=== PATIENT | female | born 1980 | race Hispanic/Latino ===

== ENCOUNTER 2018-01-01 13:54 | Emergency (ER) | payer BC ==
[2018-01-01] MEDS ORDERED: Sodium Chloride 0.9% 1,000 ML IV ONE (14:24)
[2018-01-01] MEDS ORDERED: Lidocaine 1%/Epinephrine 1:100000 30 ml vial IJ ONE (14:39)
[2018-01-01 14:56] LABS: BASO # 0.1 K/uL (0.0-0.2); BASO % 0.7 % (0.0-2.0); EOS # 0.1 K/uL (0.0-0.7); LYMPH # 1.3 K/uL (1.0-4.3); MEAN CELL VOLUME 91.2 fL (81.0-99.0); MEAN CORPUSCULAR HEMOGLOBIN 31.7 pg (27.0-31.0); MEAN CORPUSCULAR HGB CONC 34.8 g/dL (33.0-37.0); MEAN PLATELET VOLUME 9.8 fL (7.2-11.7); MONO # 0.6 K/uL (0.0-0.8); MONO % 6.1 % (0.0-10.0); NEUT # 8.5 K/uL (1.8-7.0); NEUT % 80.2 % (50.0-75.0); RBC 4.72 Mil/uL (3.80-5.20); RED CELL DISTRIBUTION WIDTH 13.7 % (11.5-14.5); WHITE BLOOD COUNT 10.6 K/uL (4.8-10.8)
[2018-01-01] MEDS ORDERED: Sodium Chloride 0.9% 1,000 ML ONE (15:03)
[2018-01-01] MEDS ORDERED: Lidocaine 2% w Epi 1:100,000 Inj IJ ONE ×2 (15:10→16:36)
[2018-01-01 15:17] LABS: HCG,QUALITATIVE URINE NEGATIVE (NEGATIVE)
[2018-01-01 15:22] LABS: SQUAMOUS EPITHIAL 5 /hpf (0-5); URINE BILIRUBIN NEGATIVE (NEGATIVE); URINE BLOOD NEGATIVE (NEGATIVE); URINE CLARITY Hazy (Clear); URINE COLOR Yellow (YELLOW); URINE GLUCOSE (UA) NORMAL (Normal); URINE HYALINE CAST 0-2 /lpf (0-2); URINE LEUKOCYTE ESTERASE NEG Leu/uL (Negative); URINE PROTEIN 1+ mg/dL (NEGATIVE); URINE UROBILINOGEN NORMAL mg/dL (0.2-1.0)
[2018-01-01 15:26] LABS: ALB/GLOB RATIO 1.1 (1.0-2.1); ALBUMIN 4.3 g/dL (3.5-5.0); ALT/SGPT 15 U/L (9-52); AST/SGOT 17 U/L (14-36); BLOOD UREA NITROGEN 10 mg/dL (7-17); CALCIUM 9.4 mg/dl (8.6-10.4); GFR AFRICAN-AMERICAN > 60; GFR NON-AFRICAN AMERICAN > 60
--- NOTE | 2018-01-01 16:29 | C.PDOC ---
History Of Present Illness <Romulo Loyola DO - Last Filed: 01/01/18 16:42> <Kelly Cooper - Last Filed: 01/05/18 14:02> 37-year-old female, presents to the emergency department from urgent care s/p syncopal episode. Patient states she went to urgent care this morning to have an abscess drained, while the abscess was being incised patient started feeling lightheaded, breathing fast and then she was told she fainted. When patient woke up, her hands were cramped which progressively self resolved. Patient has a history of anxiety but has never had an episode of syncope. Denies biting her tongue, incontinence, headache, or trauma. Denies any visual changes, nausea/ vomiting, chest pain, sob or changes in sensation. Notes abscess is in the right groin. She had it a few weeks ago, it self drained and then returned. (+) shaved the area. (Kelly Cooper) <Romulo Loyola DO - Last Filed: 01/01/18 16:42> History Per: Patient History/Exam Limitations: no limitations <Kelly Cooper - Last Filed: 01/05/18 14:02> Time Seen by Provider: 01/01/18 14:16 Chief Complaint (Nursing): Abnormal Skin Integrity Past Medical History Reviewed: Historical Data, Nursing Documentation, Vital Signs Family History: States: No Known Family Hx - Social History Hx Alcohol Use: No Hx Substance Use: No <Kelly Cooper - Last Filed: 01/05/18 14:02> Vital Signs: Last Vital Signs Temp 97.6 F 01/01/18 16:39 Pulse 76 01/01/18 16:39 Resp 18 01/01/18 16:39 BP 103/68 01/01/18 16:39 Pulse Ox 98 01/01/18 18:46 Review Of Systems Constitutional: Negative for: Fever Cardiovascular: Negative for: Chest Pain, Palpitations Respiratory: Negative for: Shortness of Breath Neurological: Negative for: Weakness, Numbness, Headache, Dizziness <Kelly Cooper - Last Filed: 01/05/18 14:02> Physical Exam - Physical Exam Appears: Non-toxic, No Acute Distress, Other (does not appear post icctal) Skin: Warm, Dry, No Rash, Other (3x1 cm area of erythema and fluctuance to right groin) Head: Atraumatic, Normacephalic Eye(s): bilateral: Normal Inspection, PERRL, EOMI Ear(s): Bilateral: Normal Nose: Normal Oral Mucosa: Moist Lips: Normal Appearing Neck: Normal ROM, Supple Chest: Symmetrical Cardiovascular: Rhythm Regular Respiratory: Normal Breath Sounds, No Accessory Muscle Use Gastrointestinal/Abdominal: Normal Exam, Soft, No Tenderness Extremity: Normal ROM, No Deformity, No Swelling Neurological/Psych: Oriented x3, Normal Speech <Kelly Cooper - Last Filed: 01/05/18 14:02> ED Course And Treatment - Laboratory Results Result Diagrams: 01/01/18 14:52 01/01/18 14:52 <Romulo Loyola DO - Last Filed: 01/01/18 16:42> - Laboratory Results Result Diagrams: 01/01/18 14:52 01/01/18 14:52 ECG: Interpreted By Me, Viewed By Me ECG Rhythm: Sinus Rhythm ECG Interpretation: No Acute Changes Rate From EC O2 Sat by Pulse Oximetry: 98 (RA) Pulse Ox Interpretation: Normal Progress Note: Case discussed with BARTOLOME Guajardo from the urgent care, states patient did not have any convulsions. She lost consciousness for less than 30 seconds at the time of incision. Vitals and EKG were obtained, found to be WNL. Case discussed with Dr loyola who evaluated work up and agreed upon no CT head and discharge. Discussed with pt signs and symtpoms of concern. Pt notes she has an appointment with a neurologist tomorrow for frequent headaches. Pt instructed to f/u as scheduled and return to ER if symtpoms persist or worsen. <Kelly Cooper - Last Filed: 01/05/18 14:02> - Incision & Drainage Of Abscess Anesthesia: Lidocaine 1%, With Epi Prep Used: Sterile Water, Betadine Procedure: Incised W/Scalpel Blade#: (11), Drained Pus, Irrigated Cavity W/ Saline, Probed To Break Up Loculations, Packed W/Gauze, Cultures Obtained And Sent To Lab <Kelly Cooper - Last Filed: 01/05/18 14:02> Disposition <Romulo Loyola DO - Last Filed: 01/01/18 16:42> - Disposition Disposition Time: 16:25 <Kelly Cooper - Last Filed: 01/05/18 14:02> - Disposition Disposition: HOME/ ROUTINE Condition: STABLE Additional Instructions: Follow up with neurologist as scheduled tomorrow. Follow up with PMD/ ER in 2 days for wound check. Prescriptions: Clindamycin [Cleocin] 300 mg PO Q6 #28 cap Instructions: Abscess Incision and Drainage, Syncope (Fainting) (DC) Forms: [facility] ([place]ian) - Clinical Impression Clinical Impression: Abscess, Syncope <Romulo Loyola DO - Last Filed: 01/01/18 16:42> - Scribe Statement The provider has reviewed the documentation as recorded by the Scribe (Andres Del Valle) <Kelly Cooper - Last Filed: 01/05/18 14:02> - Scribe Statement All medical record entries made by the Scribe were at my direction and personally dictated by me. I have reviewed the chart and agree that the record accurately reflects my personal performance of the history, physical exam, medical decision making, and the department course for this patient. I have also personally directed, reviewed, and agree with the discharge instructions and disposition. (Kelly Cooper)
[2018-01-01 16:40] VITALS: BP 103/68; PULSE 76; RESP 18; TEMP 97.6
[2018-01-01 17:10] VITALS: O2SAT 98
--- NOTE | 2018-01-02 18:20 | CARD ---
APPROVED REPORT EKG Measurement Heart [id number] <Conclusion> Normal sinus rhythm Normal ECG
== END 2018-01-01 16:44 | disposition home or self-care (01) ==
LOC: C.ER 13:54
DX: L02.214 Cutaneous abscess of groin (principal); R55 Syncope and collapse
CPT/HCPCS: 10060; 80053; 81001; 84702; 84703; 85025; 87070; 93005; 96361; 96374; 99284; J1885; J7040